=== PATIENT | male | born 1990 | race African-American/Black ===

== ENCOUNTER 2016-08-05 01:22 | Emergency (ER) | payer MEDICAID ==
[~2016-08-05] VITALS: Ht 182.9 cm; Wt 76.0 kg
[2016-08-05] MEDS ORDERED: SODIUM CHLORIDE 0.9% 1,000 ML IV ONE (01:45)
[2016-08-05 03:15] VITALS: BP 110/65
== END 2016-08-05 07:28 | disposition left against medical advice (07) ==
LOC: ER 01:23
DX: T51.91XA Toxic effect of unspecified alcohol, accidental (unintentional), initial encounter (principal); Z88.1 Allergy status to other antibiotic agents; Y92.9 Unspecified place or not applicable
CPT/HCPCS: 36415; 96360; 99284; G0482; J7030; Z7610

== ENCOUNTER 2018-05-13 23:38 | Emergency (ER) | payer MEDICAID ==
[~2018-05-13] VITALS: Ht 193 cm; Wt 84.0 kg
[2018-05-14 05:30] VITALS: BP 114/76
== END 2018-05-14 07:07 | disposition home or self-care (01) ==
LOC: ER 23:38
DX: F10.129 Alcohol abuse with intoxication, unspecified (principal); Y90.9 Presence of alcohol in blood, level not specified; Z88.3 Allergy status to other anti-infective agents
CPT/HCPCS: 99283

== ENCOUNTER 2018-08-13 01:16 | Emergency (ER) | payer MEDICAID ==
[~2018-08-13] VITALS: Ht 180.3 cm; Wt 77.5 kg
[2018-08-13] MEDS ORDERED: HYDROCODONE/ACETAMINOPHEN 5/325MG TABLET PO ONE (06:15)
[2018-08-13 06:20] VITALS: BP 124/86
== END 2018-08-13 07:03 | disposition home or self-care (01) ==
LOC: ER 01:16
DX: S00.511A Abrasion of lip, initial encounter (principal); F12.10 Cannabis abuse, uncomplicated; F14.10 Cocaine abuse, uncomplicated; F15.10 Other stimulant abuse, uncomplicated; F17.200 Nicotine dependence, unspecified, uncomplicated; Z88.1 Allergy status to other antibiotic agents; Y04.0XXA Assault by unarmed brawl or fight, initial encounter; Y93.89 Activity, other specified; Y92.89 Other specified places as the place of occurrence of the external cause; Y99.8 Other external cause status
CPT/HCPCS: 99283

== ENCOUNTER 2023-12-06 03:39 | Emergency (ER) | payer MEDICAID, OTHER ==
[~2023-12-06] VITALS: Ht 182.9 cm; Wt 90.0 kg
[2023-12-06 03:42] VITALS: BP 129/85; PULSE 71; RESP 15; TEMP 98.8; O2SAT 99
== END 2023-12-06 03:55 | disposition home or self-care (01) ==
LOC: ER 03:39
DX: F15.90 Other stimulant use, unspecified, uncomplicated (principal); F12.90 Cannabis use, unspecified, uncomplicated; F14.90 Cocaine use, unspecified, uncomplicated; Z88.0 Allergy status to penicillin; Z00.00 Encounter for general adult medical examination without abnormal findings; Z53.21 Procedure and treatment not carried out due to patient leaving prior to being seen by health care provider